=== PATIENT | female | born 1980 | race Caucasian/White ===

== ENCOUNTER 2018-05-26 10:18 | Emergency (ER) | payer SELFPAY ==
[~2018-05-26] VITALS: Ht 172.7 cm; Wt 99.8 kg
[2018-05-26 10:29] VITALS: BP 125/86
[2018-05-26] MEDS ORDERED: TETRACAINE 0.5% OPHTH SOLUTION 4ML BOTTLE. ONE (10:35)
[2018-05-26] MEDS ORDERED: FLUORESCEIN 1MG EYE STRIP. ONE (10:35)
[2018-05-26] MEDS ORDERED: OLOP5DRO EACHEYE (10:58)
[2018-05-26] MEDS ORDERED: MELO7.5T29 PO (10:58)
[2018-05-26] MEDS ORDERED: ERYT1OIN6 OP (10:58)
--- NOTE | 2018-05-26 10:58 | PHYS DOC ---
Past History Past Medical History: Anxiety, Asthma Past Surgical History: No Surgical History Smoking: Cigarettes Alcohol Use: None Drug Use: None Adult General Chief Complaint Chief Complaint: EYE PROBLEMS HPI HPI Patient is a 37-year-old female presents complaining of right eye pain and swelling. This started this morning on waking up. Patient denies any identifiable triggers such his known allergy, foreign body, scratch/injury, new pets. She reports watery drainage. Some slight blurring in the vision. She does not wear glasses or contacts. She has not been exposed to any significant ultraviolet light. There is no photophobia. She has not tried any home treatment. Nothing seems to make the symptoms better or worse. They are moderate to severe in intensity.[] Review of Systems Review of Systems Constitutional: Denies fever or chills [] Eyes: The history of present illness[] HENT: Denies nasal congestion or sore throat [] Respiratory: Denies cough or shortness of breath [] Cardiovascular: Denies Chest pain or shortness of breath[] GI: Denies abdominal pain, nausea, vomiting, bloody stools or diarrhea [] : Denies dysuria or hematuria [] Musculoskeletal: Denies back pain or joint pain [] Integument: Denies rash or skin lesions [] Neurologic: Denies headache, focal weakness or sensory changes [] Endocrine: Denies polyuria or polydipsia [] All other systems were reviewed and found to be within normal limits, except as documented in this note. Current Medications Current Medications Current Medications Medications (Trade) Dose Ordered Sig/Reyes Start Time Stop Time Status Last Admin Dose Admin Fluorescein Sodium (Ful-Maria Dolores 1mg) 1 strip STK-MED ONCE 05/26/18 10:35 05/26/18 10:36 DC Tetracaine HCl (Tetracaine) 40 drop STK-MED ONCE 05/26/18 10:35 05/26/18 10:36 DC Allergies Allergies Allergies Coded Allergies Type Severity Reaction Last Updated Verified No Known Drug Allergies 05/26/18 No Physical Exam Physical Exam Constitutional: Well developed, well nourished, no acute distress, non-toxic appearance. [] HENT: Normocephalic, atraumatic, bilateral external ears normal, oropharynx moist, no oral exudates, nose normal. [] Eyes: PERRLA, EOMI, there is chemosis, no significant injection, the retina is normal, no cell or flare in the anterior chamber. [] Neck: Normal range of motion, no tenderness, supple, no stridor. [] Cardiovascular:Heart rate regular rhythm, no murmur [] Lungs & Thorax: Bilateral breath sounds clear to auscultation [] Abdomen: Not examined[] Skin: Warm, dry, no erythema, no rash. [] Back: No tenderness, no CVA tenderness. [] Extremities: No tenderness, no cyanosis, no clubbing, ROM intact, no edema. [] Neurologic: Alert and oriented X 3, normal motor function, normal sensory function, no focal deficits noted. [] Psychologic: Affect normal, judgement normal, mood normal. [] Current Patient Data Vital Signs Vital Signs Date Time Temp Pulse Resp B/P (MAP) Pulse Ox O2 Delivery O2 Flow Rate FiO2 05/26/18 10:29 98.4 83 18 98 Room Air EKG EKG [] Radiology/Procedures Radiology/Procedures [] Course & Med Decision Making Course & Med Decision Making Pertinent Labs and Imaging studies reviewed. (See chart for details) ED course and medical decision making: Patient arrived, was placed in bed, and tolerated exam well. She had tetracaine instilled into her right eye which didn' t improve the pain. Fluorescein showed no uptake. This appears to be chemosis whether due to allergic or bacterial trigger uncertain at this time and so we' ll cover for both. Discussed findings and plan with patient and family voiced understanding. All questions were answered. She was discharged in improved condition.[] Dragon Disclaimer Dragon Disclaimer This electronic medical record was generated, in whole or in part, using a voice recognition dictation system. Departure Departure: Impression: Primary Impression: Chemosis of conjunctiva Disposition: HOME, SELF-CARE Condition: IMPROVED Referrals: PCP,NO (PCP) Patient Instructions: Allergic Conjunctivitis, Conjunctivitis (Viral and Bacterial) Additional Instructions: Follow-up with your regular doctor in 2 days. If you do not have regular doctor list of local primary care physicians we provided for you. Return to the ER if worsening pain, worsening difficulty seeing, or any other concerns. Scripts Meloxicam (MELOXICAM) 7.5 Mg Tablet 7.5 MG PO DAILY for PAIN, #20 TAB Prov: SHANTHI HYLTON DO 05/26/18 Erythromycin Base (Erythromycin) 1 Gm Oint...g. 1 REGAN OP Q4HRS W/A for chemosis for 5 Days, MISC Prov: SHANTHI HYLTON DO 05/26/18 Olopatadine Hcl (PATANOL) 5 Ml Drops 1 DROP EACHEYE BID for chemosis, #5 ML 0 Refills Prov: SHANTHI HYLTON DO 05/26/18 Problem Qualifiers Primary Impression: Chemosis of conjunctiva Laterality: right Qualified Codes: H11.421 - Conjunctival edema, right eye SHANTHI HYLTON DO May 26, 2018 10:58
== END 2018-05-26 11:06 | disposition home or self-care (01) ==
LOC: ER 10:18
DX: H11.421 Conjunctival edema, right eye (principal); F41.9 Anxiety disorder, unspecified; J45.909 Unspecified asthma, uncomplicated; F17.210 Nicotine dependence, cigarettes, uncomplicated
CPT/HCPCS: 99283